=== PATIENT | female | born 1970 | race Caucasian/White ===

== ENCOUNTER 2019-05-14 21:52 | Emergency (ER) | payer OTHER ==
[~2019-05-14] VITALS: Ht 170.2 cm; Wt 104.3 kg
[2019-05-14 21:55] VITALS: BP 168/116
--- NOTE | 2019-05-14 21:55 | NUR ---
PT TAKEN TO BED #1
--- NOTE | 2019-05-14 22:00 | NUR ---
48 Y/O F PRESENTS TO ED WITH C/O INTERMINTENT ABODMINAL PAIN WITH SPOTTING X1 DAY. ABDOMEN SOFT AND NON-TENDER. BOWEL SOUNDS PRESENT X4 QUADRANTS. PT DENIES N/V/D, HEMATURIA, AND DYSURIA. SIGNIFICANT OTHER AT BEDSIDE. BEDRAILX1 UP. WILL CONTINUE TO MONITOR.
[2019-05-14 22:48] LABS: HEMOGLOBIN 13.3 g/dL (12.0-16.0); RED BLOOD CELL COUNT(AUTO) 4.41 MIL/uL (4.20-5.40); WHITE BLOOD COUNT (AUTO) 9.7 K/uL (4.8-10.8)
[2019-05-14 22:49] LABS: BASOPHILS # (AUTO) 0.1 K/uL (0.00-0.22); BASOPHILS % (AUTO) 1.4 % (0.0-2.0); EOSINOPHILS # (AUTO) 0.5 K/uL (0-0.4); EOSINOPHILS % (AUTO) 5.1 % (0.0-4.0); HEMATOCRIT 40.4 % (36-48); LYMPHOCYTES # (AUTO) 2.5 K/uL (2.5-16.5); MEAN CORPUSCULAR HEMOGLOBIN 30 pg (27-31); MEAN CORPUSCULAR HGB CONC 33 g/dL (33-37); MEAN CORPUSCULAR VOLUME 91.5 fL (80-94); MONOCYTES # (AUTO) 0.6 K/uL (0.8-1.0); NEUTROPHILS % (AUTO) 61.5 % (42.2-75.2); PLATELET COUNT (AUTO) 329 K/uL (140-450); RED CELL DISTRIBUTION WIDTH 13.4 % (11.6-13.7)
--- NOTE | 2019-05-14 22:50 | NUR ---
PT REFUSED CXR. DR. PIERCE MADE AWARE.
[2019-05-14 23:09] LABS: ANION GAP 12.3 (8-16); CARBON DIOXIDE 27.8 mmol/L (21-32); CHLORIDE 105 mmol/L (98-107); CREATININE 0.7 mg/dL (0.6-1.3); GFR ARICAN-AMERICAN 116 mL/min (>90); GLUCOSE 92 mg/dL (74-106); POTASSIUM 4.1 mmol/L (3.5-5.1); SODIUM SERUM 141 mmol/L (136-145); UREA NITROGEN, BLOOD 15 mg/dL (7-18)
[2019-05-14 23:10] LABS: ALBUMIN 3.4 g/dL (3.4-5.0); ASPARTATE AMINOTRANSFERASE 14 U/L (15-37); TOTAL BILIRUBIN 0.2 mg/dL (0.0-1.0)
[2019-05-14 23:14] LABS: APPEARANCE,URINE CLEAR (CLEAR); BILIRUBIN,URINE NEGATIVE (NEGATIVE); BLOOD, URINE 1+ (NEGATIVE); COLOR,URINE YELLOW (YELLOW); LEUKOCYTE ESTERASE ,URINE NEGATIVE (NEGATIVE); NITRITE, URINE NEGATIVE (NEGATIVE); UGLUCOSE NEGATIVE (NEGATIVE)
[2019-05-14 23:24] LABS: BARBITURATE, URINE NEGATIVE ng/ml (NEG <=200); BENZODIAZEPINE, URINE NEGATIVE ng/mL (NEG <=200); CANNABINOID, URINE POSITIVE ng/mL (NEG <=50); COCAINE, URINE NEGATIVE ng/mL (NEG <=300); OPIATE, URINE NEGATIVE ng/mL (NEG <=2000); PHENCYCLIDINE SCREEN,URINE NEGATIVE ng/mL (NEG <=25)
[2019-05-14 23:37] LABS: RBC,URINE 0-5 /HPF (0-5); WBC,URINE 0-5 /HPF (0-5)
[2019-05-15 00:15] VITALS: BP 143/98
--- NOTE | 2019-05-15 00:15 | NUR ---
PT SEEN WITH EYES CLOSED. VISIBLE CHEST RISE AND FALL NOTED. LIGHTS TURNED OFF FOR PT COMFORT. WILL CONTINUE TO MONITOR.
== END 2019-05-14 21:56 | disposition home or self-care (01) ==
LOC: MED 21:52
DX: N93.9 Abnormal uterine and vaginal bleeding, unspecified (principal); M54.9 Dorsalgia, unspecified; G89.29 Other chronic pain; F17.210 Nicotine dependence, cigarettes, uncomplicated; K59.00 Constipation, unspecified; E11.9 Type 2 diabetes mellitus without complications; I10 Essential (primary) hypertension; F12.90 Cannabis use, unspecified, uncomplicated; Z88.6 Allergy status to analgesic agent; Z98.890 Other specified postprocedural states; Z71.6 Tobacco abuse counseling
CPT/HCPCS: 36415; 76856; 80053; 80305; 81001; 84702; 85025; 93005; 99284; G0482; Q0092

== ENCOUNTER 2019-05-17 01:52 | Emergency (ER) | payer OTHER ==
[~2019-05-17] VITALS: Ht 170.2 cm; Wt 104.3 kg
[2019-05-17 02:05] VITALS: BP 140/83
--- NOTE | 2019-05-17 02:05 | NUR ---
TO BED # 04 VIA WHEELCHAIR
--- NOTE | 2019-05-17 02:33 | NUR ---
48 Y/O FEMALE C/O COUGH, CONGESTION W/ WHITE SINUS DRAINAGE, CONGESTION X18 MO. DRY, NON PRODUCTIVE COUGH. PT STATES HER LT ARM IS BROKEN S/P FALLING 6 FLIGHTS DOWN ESCALATOR, NO DEFORMITY OF ARM NOTED AT THIS TIME. PT ALSO STATES SHE IS . N/V X1 MONTH. PT DENIES ALCOHOL USE, MARIJUANA LAST SMOKED X5 HRS AGO. RR EVEN AND UNLABORED. BOWEL SOUNDS PRESENT X4 QUAD. PT APPEARS IN NO RESPIRATORY DISTRESS. PT FRIEND AT BEDSIDE. MEDHX: PTSD, DEPRESSION, ANXIETY ALLERGIES: VICODIN, ASPIRIN
--- NOTE | 2019-05-17 02:41 | NUR ---
Dr. Gar examining patient.
--- NOTE | 2019-05-17 02:52 | NUR ---
FLU SWAB COLLECTED AT THIS TIME.
--- NOTE | 2019-05-17 03:39 | NUR ---
PT SITTING IN WHEELCHAIR IN ROOM CALM AND PLEASANT. RR EVEN AND UNLABORED. PT DOES NOT APPEAR TO BE COUGHING AT THIS TIME. VSS. WILL CONTINUE TO MONITOR
[2019-05-17 04:04] VITALS: BP 133/80
--- NOTE | 2019-05-17 04:04 | NUR ---
Patient discharged with v/s stable. Written and verbal after care instructions given and explained. Patient alert, oriented and verbalized understanding of instructions. Ambulatory with steady gait. All questions addressed prior to discharge. ID band removed. Patient advised to follow up with PMD. Rx of AMOXICILLIN AND PROMETHAZINE given. Patient educated on indication of medication including possible reaction and side effects. Opportunity to ask questions provided and answered.
== END 2019-05-17 04:04 | disposition home or self-care (01) ==
LOC: MED 01:52
DX: J02.8 Acute pharyngitis due to other specified organisms (principal); B96.89 Other specified bacterial agents as the cause of diseases classified elsewhere; E11.9 Type 2 diabetes mellitus without complications; I10 Essential (primary) hypertension; F32.9 Major depressive disorder, single episode, unspecified; F41.9 Anxiety disorder, unspecified; F43.10 Post-traumatic stress disorder, unspecified; Z88.6 Allergy status to analgesic agent
CPT/HCPCS: 87804; 99283